=== PATIENT | female | born 2005 | race Caucasian/White ===

== ENCOUNTER 2025-02-13 21:44 | Emergency (ER) | payer BC, SELFPAY ==
[2025-02-13 21:54] VITALS: BP 119/78
[2025-02-14 00:29] VITALS: BMI 24.2
[2025-02-14 00:31] VITALS: BP 103/70
--- NOTE | 2025-02-14 02:46 | ED.GENMED ---
History of Present Illness
General
Chief Complaint: Fall
Source: patient
Exam Limitations: none
Time Seen by Provider: 02/14/25 00:32
Nursing documentation reviewed up to this point in time: agreed with
History of Present Illness
History of Present Illness:
19-year-old female presenting to the emergency department today after a fall off a horse few hours prior to arrival. There is a clear yellow liquid from her nostril on the right side she claims that she did hit her head was wearing a helmet did not
lose consciousness not on blood thinners.
Review of Systems
Review of Systems
Allergies reviewed?: Yes
All Other Systems: ROS reviewed and negative except as documented in HPI and ROS
Phy Exam
Physical Exam
Physical Exam:
GENERAL: Alert , in no apparent distress
EYE: pupils equal and reactive
NECK: Supple, no significant adenopathy.
ENT: o/p clr, mmm.
CARDIAC: Regular rate and rhythm .
LUNGS: Clear breath sounds bilaterally, no acute respiratory distress, no wheezes/rales/rhonchi
ABDOMEN: Soft, without focal tenderness, no r/g, no cvat
NEUROLOGICAL: Alert and oriented, no focal neuro deficits
SKIN: Warm and dry, skin intact.
MUSCULOSKELETAL: No edema, well perfused.
PSYCH: Normal and appropriate interaction.
Course
Orders/Labs/Results
Orders:
Orders
02/14/25 00:59
CT Cervical Spine W/o Iv Contr Urgent
Comment:
Reason For Exam: fall off horse
CT Facial Bones W/o Iv Contras Urgent
Comment:
Reason For Exam: fall off horse
CT Head W/o Iv Contrast Urgent
Comment:
Reason For Exam: fall off horse
Vital Signs
Initial and Last Documented VS:
Initial Vital Signs
Temp Pulse Resp BP Pulse Ox
98.2 F 68 18 119/78 98
02/13/25 21:54 02/13/25 21:54 02/13/25 21:54 02/13/25 21:54 02/13/25 21:54
Last Documented Vital Signs
Temp Pulse Resp BP Pulse Ox
98.2 F 72 16 103/70 99
02/13/25 21:54 02/14/25 00:31 02/14/25 00:31 02/14/25 00:31 02/14/25 00:31
MDM/Problems Addressed
MDM/Problems Addressed:
19-year-old female presenting to the emergency department today after fall off a horse she did hit her head was wearing a helmet did not lose consciousness. Here examination without emergent findings did have some vague discomfort to the back of
the neck mainly to the right side but some minimal pain to midline. CT scan of the head face and neck without emergent findings at this point patient stable for discharge no evidence of any emergent pathology return precautions given.
*Pulse Oximetry
SaO2: 99
Oxygen Mode of Delivery: Room air
Patient hypoxic: no (99)
*Critical Care Note
Total Time (30-74mins, 75-104mins- exclusive of procedures): Not Applicable
ED Attending Note
-
Portions of this chart may have been created with voice recognition software.� Occasional wrong word or��sound alike� substitutions may have occurred due to the inherent limitations of voice recognition software.
Discharge Plan
Departure
Patient Disposition: Home (Routine Discharge)
Date of Disposition: 02/14/25
Time of Disposition: 02:48
Patient with high blood pressure during this ER visit?: No
Condition: Good
Covid-19: Not Applicable
Discharge Problem:
Injury while horseback riding
Instructions: Concussion, Adult (DC)
Referrals:
NONE,* [Family Provider, Internal Medicine]
Activity Restrictions/Additional Instructions:
You came to the emergency department today after a fall off a horse. Here had a reassuring assessment with normal CT scan of the head face and neck. Return for any worsening, new or concerning symptoms.
Interventions
Interventions:
*Risk Screen - Suicide Last Done: 02/13/25 21:54
*General Assessment Last Done: 02/13/25 21:54
*Neglect/Abuse Screening Last Done: 02/13/25 21:54
*ED- Fall Risk Assessment Last Done: 02/14/25 00:26
*ED COVID-19 Vaccine History Last Done: 02/14/25 00:26
ED-Musculoskeletal Assessment Last Done: 02/14/25 00:26
ED- Neurological Assessment Last Done: 02/14/25 00:26
ED-Skin Assessment Last Done: 02/14/25 00:26
Discharge Date and Time
Print Language: CONGOLESE
[2025-02-14 03:00] VITALS: BP 98/66
== END 2025-02-14 03:00 | disposition home or self-care (01) ==
LOC: EMR 21:44
PROVIDERS: EMERGENCY PHYSICIAN Student in an Organized Health Care Education/Training Program
DX: T14.90XA Injury, unspecified, initial encounter (principal); V80.010A Animal-rider injured by fall from or being thrown from horse in noncollision accident, initial encounter; Y93.52 Activity, horseback riding
CPT/HCPCS: 99284; 70450; 70486; 72125